=== PATIENT | male | born 1990 | race Two or more races ===

== ENCOUNTER 2024-12-01 01:47 | Inpatient (IN) | payer MEDICAID, OTHER ==
[2024-12-01] VITALS (59 sets, daily range): BP systolic 96–144; BP diastolic 56–107; TEMP 97.2–99.5; O2SAT 96–100
[~2024-12-01] VITALS: Ht 180.3 cm; Wt 79.4 kg
[2024-12-01] MEDS ORDERED: ALBUTEROL FS 2.5 MG/3 ML VIAL.NEB ONE (01:49)
[2024-12-01] MEDS ORDERED: IPRATROPIUM NEB FS 0.5 MG/2.5 ML AMPUL.NEB ONE (01:49)
[2024-12-01] MEDS ORDERED: Magnesium 1GM/D5W 100ML PREMIX 0 ML IV ONE (01:50)
[2024-12-01] MEDS: IV NS 0.9% 1,000 ML BAG IV ONE ×2 (01:54→03:05)
[2024-12-01] MEDS: ALBUTEROL FS 2.5 MG/3 ML VIAL.NEB CONTNEB ONE (02:00)
[2024-12-01] MEDS ORDERED: LORAZEPAM INJ 2 MG/ML VIAL ONE (02:00)
[2024-12-01] MEDS: LORAZEPAM INJ 2 MG/ML VIAL IVP ONE (02:00)
[2024-12-01] MEDS: IPRATROPIUM NEB FS 0.5 MG/2.5 ML AMPUL.NEB NEB ONE (02:00)
[2024-12-01] MEDS: PROPOFOL 200 MG/20 ML VIAL IV ONE (02:02)
[2024-12-01] MEDS ORDERED: PROPOFOL 100 ML ONE (02:09)
[2024-12-01 02:14] LABS: PLATELET COUNT (AUTO) 269 K/uL (150-450); RED BLOOD CELL COUNT(AUTO) 5.17 MIL/uL (4.5-6.0); RED CELL DISTRIBUTION WIDTH 12.8 % (11.5-15.0); WHITE BLOOD COUNT (AUTO) 24.4 K/uL (4.3-11.0)
[2024-12-01] MEDS: PROPOFOL 100 ML IV ONE (02:14)
[2024-12-01 02:26] LABS: CALCIUM, SERUM 9.5 mg/dL (8.5-10.1); CREATININE 0.9 mg/dL (0.6-1.3); SODIUM SERUM 141.0 mmol/L (136-145); UREA NITROGEN, BLOOD 11.0 mg/dL (7-18)
[2024-12-01 02:30] LABS: ASPARTATE AMINOTRANSFERASE 17.0 U/L (15-37); SERUM AMMONIA 20 umol/L (11-32); TOTAL PROTEIN, SERUM 7.7 g/dL (6.4-8.2)
[2024-12-01 02:31] LABS: ALCOHOL, BLOOD < 3 mg/dL (0-10)
[2024-12-01] MEDS ORDERED: CEFTRIAXONE 1GM BAG (ER ONLY) 50 ML IV ONE (03:05)
[2024-12-01] MEDS ORDERED: VANCOMYCIN 1 GM /D5W 250 ML PB IV ONE (03:06)
[2024-12-01] MEDS: CEFTRIAXONE 1GM BAG (ER ONLY) 1 GM/50 ML PIGGYBACK IV ONE (03:12)
[2024-12-01 03:22] LABS: ABG BASE EXCESS -21.5 mmol/L (-2.0-3.0); ABG OXYGEN SATURATION 99.6 % (94.0-98.0); ABG PCO2 50.2 mmHg (35.0-48.0); ABG PH 6.947 (7.350-7.450); ABG PO2 609.7 mmHg (83.0-108.0); ABG TOTAL HEMOGLOBIN 14.7 G/dL (13.5-17.5); FRACTIONATED INSPIRED OXYGEN 100.0 %; PEEP,BG 5 cm H2O; SET RATE, BG 18.0; SITE, ABG LEFT RADIAL; VT, ABG 500 mL
[2024-12-01 03:23] LABS: LACTIC ACID 2.0 mmol/L (0.4-2.0)
[2024-12-01 03:51] LABS: APPEARANCE,URINE CLEAR (CLEAR); BLOOD, URINE TRACE-INTA Ery/uL (NEGATIVE); LEUKOCYTE ESTERASE ,URINE NEGATIVE (NEGATIVE); NITRITE, URINE NEGATIVE (NEGATIVE); UGLUCOSE NEGATIVE (NEGATIVE)
[2024-12-01] MEDS: VANCOMYCIN 1 GM in IV D5W 250 ML IV ONE (03:53)
[2024-12-01 04:03] LABS: ADD URINE CULTURE NO; SQUAMOUS EPITHELIAL CELL,UR Few /HPF (None Seen)
[2024-12-01 04:24] LABS: AMPHETAMINE, URINE NEGATIVE (NEGATIVE); BARBITURATE, URINE NEGATIVE (NEGATIVE); BENZODIAZEPINE, URINE NEGATIVE (NEGATIVE); CANNABINOID, URINE NEGATIVE (NEGATIVE); COCCAINE, URINE NEGATIVE (NEGATIVE); OPIATE, URINE NEGATIVE (NEGATIVE)
[2024-12-01] MEDS ORDERED: ACETAMINOPHEN 650 MG/SUPP.RECT RC PRN ×2 (05:00→05:30)
[2024-12-01] MEDS ORDERED: NOREPINEPHRINE 8 MG in IV D5W 242 ML IV PRN (05:00)
[2024-12-01] MEDS ORDERED: DOSING PER PHARMACY-VANCOMYCIN IV XX PRN (05:00)
[2024-12-01] MEDS ORDERED: PROPOFOL 100 ML IV PRN (05:00)
[2024-12-01] MEDS ORDERED: LORAZEPAM INJ 2 MG/ML VIAL IV PRN (05:00)
[2024-12-01] MEDS ORDERED: ONDANSETRON HCL/PF 4 MG/2 ML VIAL IVP PRN (05:00)
[2024-12-01 05:12] LABS: CSF VOLUME 1.8 mL
[2024-12-01 05:13] LABS: CSF APPEARANCE SL CLOUDY (CLEAR); CSF GLUCOSE 82 mg/dL (40-70)
[2024-12-01 05:17] LABS: CSF PROTEIN 152.85 mg/dL (15-45); CSF WHITE BLOOD CELL COUNT 54 /cumm (0-5); CSF WHITE BLOOD CELL COUNT 74 /cumm (0-5)
[2024-12-01] MEDS: PROPOFOL 100 ML IV PRN (05:34)
[2024-12-01] MEDS: IV NS 0.9% 500 ML IV ONE (05:39)
[2024-12-01] MEDS: POTASSIUM CHLORIDE 10 MEQ/50 ML PREMIXED IVPB FOR PERIPHERAL LINE IV ONE (05:39)
[2024-12-01] MEDS ORDERED: LEVETIRACETAM (500MG) 500 MG/5 ML VIAL IV ONE (05:40)
[2024-12-01] MEDS: PANTOPRAZOLE 40 MG VIAL IV SCH (05:58)
[2024-12-01] MEDS: LEVETIRACETAM (500MG) 500 MG in IV NS 0.9% 100 ML IV SCH ×2 (05:59→20:39)
[2024-12-01] MEDS: PIPERACILLIN /TAZOBACTAM 3.375 G in IV D5W 250 ML IV ONE (05:59)
[2024-12-01] MEDS: PIPERACI/TAZO 3.375GM/D5W 50ML PB IV ONE (06:00)
[2024-12-01] MEDS ORDERED: PIPERACILLIN /TAZOBACTAM 3.375 G in IV D5W 50 ML IV SCH (06:00)
[2024-12-01] MEDS: IV NS 0.9% 1,000 ML IV PRN (06:01)
[2024-12-01] MEDS: VANCOMYCIN HCL 1.25 GM in IV D5W 250 ML IV SCH (08:15)
[2024-12-01 08:46] LABS: ABG BASE EXCESS -5.0 mmol/L (-2.0-3.0); ABG OXYGEN SATURATION 99.0 % (94.0-98.0); ABG PCO2 33.4 mmHg (35.0-48.0); ABG PH 7.378 (7.350-7.450); ABG PO2 234.6 mmHg (83.0-108.0); ABG TOTAL HEMOGLOBIN 13.1 G/dL (13.5-17.5); FRACTIONATED INSPIRED OXYGEN 50.0 %; PEEP,BG 5 cm H2O; SET RATE, BG 20.0; SITE, ABG LEFT RADIAL; VT, ABG 550 mL
[2024-12-01] MEDS ORDERED: PANTOPRAZOLE 40 MG VIAL IV SCH (09:00)
[2024-12-01] MEDS ORDERED: HEPARIN SODIUM, PORCINE 5000 UNITS/1 ML VIAL SQ SCH (09:00)
[2024-12-01] MEDS: PIPERACILLIN /TAZOBACTAM 3.375 G in IV D5W 100 ML IV SCH (10:02)
[2024-12-01] MEDS: IPRATROPIUM NEB FS 0.5 MG/2.5 ML AMPUL.NEB NEB SCH (11:20)
[2024-12-01] MEDS: ALBUTEROL HALF STRENGTH 1.25 MG/3 ML VIAL.NEB NEB SCH (11:20)
[2024-12-01] MEDS ORDERED: ACYCLOVIR IV 500 MG VIAL IV ONE (22:07)
[2024-12-01] MEDS: ACYCLOVIR IV 500 MG in IV D5W 100 ML IV SCH (22:18)
[2024-12-01 23:19] LABS: HIV-1/2 ANTIBODY NON REACTIVE (NONREACTIVE)
[2024-12-02] VITALS (68 sets, daily range): BP systolic 95–147; BP diastolic 55–117; TEMP 97.6–99.5; O2SAT 93–100
[2024-12-02 05:03] LABS: PLATELET COUNT (AUTO) 180 K/uL (150-450); RED BLOOD CELL COUNT(AUTO) 4.10 MIL/uL (4.5-6.0); RED CELL DISTRIBUTION WIDTH 13.0 % (11.5-15.0); WHITE BLOOD COUNT (AUTO) 19.8 K/uL (4.3-11.0)
[2024-12-02 05:08] LABS: CALCIUM, SERUM 7.5 mg/dL (8.5-10.1); CREATININE 2.9 mg/dL (0.6-1.3); SODIUM SERUM 144 mmol/L (136-145); UREA NITROGEN, BLOOD 16 mg/dL (7-18)
[2024-12-02] MEDS ORDERED: ACYCLOVIR IV 500 MG VIAL IV ONE (05:21)
[2024-12-02 06:03] LABS: LACTIC ACID 2.2 mmol/L (0.4-2.0)
[2024-12-02 08:07] LABS: FOLIC ACID 18.5 ng/mL (>3.0)
[2024-12-02] MEDS ORDERED: CEFTRIAXONE 2 G in IV D5W 100 ML IV SCH (09:00)
[2024-12-02] MEDS: LEVETIRACETAM (500MG) 750 MG in IV NS 0.9% 100 ML IV SCH (09:11)
[2024-12-02] MEDS: CEFTRIAXONE 2 G in IV D5W 100 ML IV SCH ×2 (09:15→20:54)
[2024-12-02 19:48] LABS: CREATININE, URINE 50.7 MG/DL (30.0-125.0); URINE SODIUM, RANDOM 71.0 mmol/l (40-220); URINE TOTAL PROTEIN 13.4 mg/dL (0-11.9)
[2024-12-02] MEDS ORDERED: VANCOMYCIN 1 GM in IV D5W 250 ML IV SCH (20:00)
[2024-12-02 20:32] LABS: CREATININE 2.4 mg/dL (0.6-1.3); UREA NITROGEN, BLOOD 16.0 mg/dL (7-18)
[2024-12-02 20:36] LABS: CALCIUM, SERUM 5.5 mg/dL (8.5-10.1); SODIUM SERUM 110.0 mmol/L (136-145)
[2024-12-02 22:36] LABS: CALCIUM, SERUM 6.6 mg/dL (8.5-10.1); CREATININE 2.8 mg/dL (0.6-1.3); SODIUM SERUM 126.0 mmol/L (136-145); UREA NITROGEN, BLOOD 21.0 mg/dL (7-18)
[2024-12-03] VITALS (27 sets, daily range): BP systolic 82–151; BP diastolic 62–100; TEMP 97.7–98.5; O2SAT 94–100
[2024-12-03] MEDS: ACYCLOVIR IV 500 MG in IV D5W 100 ML IV SCH (01:37)
[2024-12-03 05:01] LABS: PLATELET COUNT (AUTO) 173 K/uL (150-450); RED BLOOD CELL COUNT(AUTO) 3.92 MIL/uL (4.5-6.0); RED CELL DISTRIBUTION WIDTH 13.1 % (11.5-15.0); WHITE BLOOD COUNT (AUTO) 20.2 K/uL (4.3-11.0)
[2024-12-03 06:40] LABS: CREATINE KINASE, TOTAL 659.0 U/L (39-308)
[2024-12-03 07:08] LABS: ASPARTATE AMINOTRANSFERASE 33.0 U/L (15-37); CALCIUM, SERUM 7.6 mg/dL (8.5-10.1); CREATININE 2.9 mg/dL (0.6-1.3); PHOSPHORUS 5.6 mg/dL (2.5-4.9); SODIUM SERUM 147.0 mmol/L (136-145); TOTAL PROTEIN, SERUM 5.9 g/dL (6.4-8.2); UREA NITROGEN, BLOOD 29.0 mg/dL (7-18)
[2024-12-03] MEDS ORDERED: DC PROPOFOL WHEN EXTUBATED XX PRN (08:00)
[2024-12-03] MEDS ORDERED: VANCOMYCIN 1 GM in IV D5W 250ml IV SCH (08:00)
[2024-12-03 09:04] LABS: ABG BASE EXCESS -9.1 mmol/L (-2.0-3.0); ABG OXYGEN SATURATION 96.3 % (94.0-98.0); ABG PCO2 33.0 mmHg (35.0-48.0); ABG PH 7.306 (7.350-7.450); ABG PO2 90.2 mmHg (83.0-108.0); ABG TOTAL HEMOGLOBIN 13.7 G/dL (13.5-17.5); FRACTIONATED INSPIRED OXYGEN 30.0 %; SET RATE, BG 4.0; SITE, ABG RIGHT RADIAL; VT, ABG 550 mL
[2024-12-03] MEDS: IV 1/2NS 1000 ML 1,000 ML IV PRN (09:32)
[2024-12-03] MEDS: HYDROCODONE/APAP 5/325MG TABLET PO PRN (13:46)
[2024-12-04] VITALS (20 sets, daily range): BP systolic 134–150; BP diastolic 89–104; TEMP 97.5–99.2; O2SAT 92–98
[2024-12-04 04:59] LABS: PLATELET COUNT (AUTO) 167 K/uL (150-450); RED BLOOD CELL COUNT(AUTO) 4.07 MIL/uL (4.5-6.0); RED CELL DISTRIBUTION WIDTH 13.1 % (11.5-15.0); WHITE BLOOD COUNT (AUTO) 15.6 K/uL (4.3-11.0)
[2024-12-04 05:10] LABS: ASPARTATE AMINOTRANSFERASE 35.0 U/L (15-37); CALCIUM, SERUM 8.4 mg/dL (8.5-10.1); CREATININE 3.1 mg/dL (0.6-1.3); PHOSPHORUS 4.2 mg/dL (2.5-4.9); SODIUM SERUM 151.0 mmol/L (136-145); TOTAL PROTEIN, SERUM 6.4 g/dL (6.4-8.2); UREA NITROGEN, BLOOD 38.0 mg/dL (7-18)
[2024-12-04 08:07] LABS: PTH, INTACT 137 pg/mL (15-65)
[2024-12-04] MEDS: LEVETIRACETAM (250 MG) 250 MG TABLET PO SCH ×2 (09:20→20:53)
[2024-12-04 11:07] LABS: *CRYPTOCOCCUS AG, CSF Negative (Negative); VDRL, CSF Non Reactive (Non Rea:<1:1)
[2024-12-04 13:07] LABS: METHYLMALONIC ACID 194.0 nmol/L (0-378)
[2024-12-04] MEDS: ACETAMINOPHEN 325 MG TABLET PO PRN (16:07)
[2024-12-05] VITALS (12 sets, daily range): BP systolic 131–152; BP diastolic 87–102; TEMP 97.7–99.1; O2SAT 97–100
[2024-12-05 05:08] LABS: VITAMIN B1 THIAMINE,WB 243.0 nmol/L (66.5-200.0)
[2024-12-05 08:34] LABS: PLATELET COUNT (AUTO) 168 K/uL (150-450); RED BLOOD CELL COUNT(AUTO) 4.31 MIL/uL (4.5-6.0); RED CELL DISTRIBUTION WIDTH 12.8 % (11.5-15.0); WHITE BLOOD COUNT (AUTO) 11.7 K/uL (4.3-11.0)
[2024-12-05 08:52] LABS: ASPARTATE AMINOTRANSFERASE 27.0 U/L (15-37); CALCIUM, SERUM 8.6 mg/dL (8.5-10.1); CREATININE 3.1 mg/dL (0.6-1.3); PHOSPHORUS 4.0 mg/dL (2.5-4.9); SODIUM SERUM 144.0 mmol/L (136-145); TOTAL PROTEIN, SERUM 6.6 g/dL (6.4-8.2); UREA NITROGEN, BLOOD 43.0 mg/dL (7-18)
[2024-12-05] MEDS: PANTOPRAZOLE 40 MG TABLET.DR PO SCH (08:54)
[2024-12-05 11:16] LABS: BAND % (MANUAL) 1 % (0.0-5.0); EOSINOPHILS % (MANUAL) 3 % (0-4); LYMPHOCYTES % (MANUAL) 3 % (16-48); MONOCYTES % (MANUAL) 4 % (0-11.0); NEUTROPHILS % (MANUAL) 89 (42-76)
[2024-12-05 11:17] LABS: PLATELET ESTIMATE ADEQUATE
[2024-12-05] MEDS: ONDANSETRON HCL/PF 4 MG/2 ML VIAL IV PRN (17:01)
[2024-12-06] VITALS (8 sets, daily range): BP systolic 138; BP diastolic 67–99; TEMP 97.7–98.8; O2SAT 95–100
[2024-12-06 08:12] LABS: CALCIUM, SERUM 8.7 mg/dL (8.5-10.1); CREATININE 2.7 mg/dL (0.6-1.3); SODIUM SERUM 139.0 mmol/L (136-145); UREA NITROGEN, BLOOD 36.0 mg/dL (7-18)
[2024-12-06] MEDS: POTASSIUM CHLORIDE 20 MEQ TAB.PRT.SR PO ONE (09:58)
[2024-12-06] MEDS ORDERED: IPRATROPIUM NEB FS 0.5 MG/2.5 ML AMPUL.NEB NEB PRN (11:00)
[2024-12-06] MEDS: CARISOPRODOL 350 MG TABLET PO SCH (11:08)
[2024-12-07 00:05] VITALS: O2SAT 98
[2024-12-07] MEDS: ALBUTEROL HALF STRENGTH 1.25 MG/3 ML VIAL.NEB NEB PRN (00:05)
[2024-12-07 00:15] VITALS: O2SAT 100
[2024-12-07 05:05] VITALS: BP 144/100; TEMP 98.1; O2SAT 100
[2024-12-07 07:46] LABS: CALCIUM, SERUM 8.8 mg/dL (8.5-10.1); CREATININE 2.3 mg/dL (0.6-1.3); SODIUM SERUM 139.0 mmol/L (136-145); UREA NITROGEN, BLOOD 36.0 mg/dL (7-18)
[2024-12-07 08:00] VITALS: BP 124/89; TEMP 97.9; O2SAT 98
[2024-12-07 08:05] LABS: PLATELET COUNT (AUTO) 189 K/uL (150-450); RED BLOOD CELL COUNT(AUTO) 4.34 MIL/uL (4.5-6.0); RED CELL DISTRIBUTION WIDTH 12.4 % (11.5-15.0); WHITE BLOOD COUNT (AUTO) 10.7 K/uL (4.3-11.0)
[2024-12-07 09:25] LABS: EOSINOPHILS % (MANUAL) 5 % (0-4); LYMPHOCYTES % (MANUAL) 23 % (16-48); MONOCYTES % (MANUAL) 8 % (0-11.0); NEUTROPHILS % (MANUAL) 64 (42-76); PLATELET ESTIMATE ADEQUATE
[2024-12-07] MEDS: POTASSIUM CHLORIDE 20 MEQ TAB.PRT.SR PO ONE (09:39)
[2024-12-07 13:08] LABS: *WEST NILE VIRUS, IgG, SERUM Negative (Negative); *WEST NILE VIRUS, IgM, SERUM Negative (Negative)
[2024-12-07 16:00] VITALS: BP 121/97; TEMP 98.1; O2SAT 98
[2024-12-08 01:44] VITALS: O2SAT 99
[2024-12-08 06:56] LABS: CALCIUM, SERUM 9.0 mg/dL (8.5-10.1); CREATININE 2.2 mg/dL (0.6-1.3); SODIUM SERUM 137.0 mmol/L (136-145); UREA NITROGEN, BLOOD 29.0 mg/dL (7-18)
[2024-12-08 08:00] VITALS: BP 125/95; TEMP 98.4; O2SAT 95
[2024-12-08 09:28] VITALS: TEMP 98.1
[2024-12-08] MEDS ORDERED: ALBU8.5H8 INH (10:21)
[2024-12-08] MEDS ORDERED: LEVE250T2 PO (10:21)
[2024-12-09 13:07] LABS: *HSV 1 DNA PCR Negative (Negative); *HSV 2 DNA PCR Negative (Negative)
[2024-12-09 15:07] LABS: *SPE A/G RATIO 1.1 (0.7-1.7); *SPE ALBUMIN 3.1 g/dL (2.9-4.4); *SPE ALPHA-1-GLOBULIN 0.3 g/dL (0.0-0.4); *SPE ALPHA-2-GLOBULIN 0.8 g/dL (0.4-1.0); *SPE BETA GLOBULIN 1.1 g/dL (0.7-1.3); *SPE GLOBULIN, TOTAL 2.7 g/dL (2.2-3.9); *SPE M-SPIKE Not Observed g/dL (Not Observed); *SPE PROTEIN TOTAL 5.8 g/dL (6.0-8.5); *SPEGAMMA GLOBULIN 0.6 g/dL (0.4-1.8)
== END 2024-12-08 15:46 | disposition home or self-care (01) | DRG 720 ==
LOC: ER 01:49 → ICU 04:00 → MEDSG1 12-04 12:34
PROVIDERS: ADMIT Registered Nurse Psychiatric/Mental Health; ATTEND Internal Medicine
PROC: 5A1945Z Respiratory Ventilation, 24-96 Consecutive Hours (ICD-10-PCS; principal; 2024-12-01)
PROC: 0BH18EZ Insertion of Endotracheal Airway into Trachea, Via Natural or Artificial Opening Endoscopic (ICD-10-PCS; 2024-12-01)
DX: A41.9 Sepsis, unspecified organism (principal); J96.00 Acute respiratory failure, unspecified whether with hypoxia or hypercapnia; N17.0 Acute kidney failure with tubular necrosis; J69.0 Pneumonitis due to inhalation of food and vomit; G93.40 Encephalopathy, unspecified; E87.20 Acidosis, unspecified; A87.9 Viral meningitis, unspecified; E87.1 Hypo-osmolality and hyponatremia; J45.901 Unspecified asthma with (acute) exacerbation; E87.6 Hypokalemia; Z20.822 Contact with and (suspected) exposure to COVID-19; Z79.52 Long term (current) use of systemic steroids; M89.8X9 Other specified disorders of bone, unspecified site; E87.0 Hyperosmolality and hypernatremia; G40.909 Epilepsy, unspecified, not intractable, without status epilepticus; D64.9 Anemia, unspecified; I10 Essential (primary) hypertension; T36.8X5A Adverse effect of other systemic antibiotics, initial encounter; N14.19 Nephropathy induced by other drugs, medicaments and biological substances; Y92.009 Unspecified place in unspecified non-institutional (private) residence as the place of occurrence of the external cause
CPT/HCPCS: 31720; 36415; 36600; 70450-TC; 70551-TC; 71045-TC; 76770-TC; 80048-TC; 80053-TC; 80076-TC; 80202-TC; 81001; 82140-TC; 82550-TC; 82553; 82570-TC; 82607-TC; 82803-TC; 83605-TC; 83735-TC; 83921; 83970; 84100-TC; 84155; 84165; 84300-TC; 84425; 84443-TC; 84484-TC; 85025-TC; 85027-TC; 86592; 86788; 86789; 87040-TC; 87070-TC; 87081-TC; 87086-TC; 87102-TC; 87205-TC; 87806; 87899; 89051-TC; 92526; 92611; 94003-TC; 94760-TC; 94799-TC; 95819-TC; 97116-TC; 97530-TC; 99082-TC; A4223; G0378; G0480; J0133; J0696; J1953; J2060; J2405; J2470; J2543; J2919; J3373; J3475; J3480; J3490; J7030; J7040; J7050; J7060